=== PATIENT | male | born 1955 | race Asian ===

== ENCOUNTER 2019-01-03 06:41 | Day surgery (SDC) | payer OTHER ==
[~2019-01-03] VITALS: Ht 167.6 cm; Wt 65.3 kg
[2019-01-03] MEDS ORDERED: fentaNYL 0.05 MG/ML VIAL ONE (09:47)
[2019-01-03] MEDS ORDERED: LIDOCAINE 2% 100 MG/5 ML UJET TP ONE (09:47)
[2019-01-03] MEDS ORDERED: fentaNYL 0.05 MG/ML VIAL IVP ONE (10:30)
== END 2019-01-03 10:45 | disposition home or self-care (01) ==
LOC: MOR 06:41 → MTU 06:44 → MOR 10:45
PROVIDERS: ATTEND Internal Medicine Gastroenterology
DX: Z12.11 Encounter for screening for malignant neoplasm of colon (principal)
CPT/HCPCS: 45378; J3010